=== PATIENT | male | born 1995 | race African-American/Black ===

== ENCOUNTER 2024-04-27 11:50 | Emergency (ER) | payer SELFPAY ==
[~2024-04-27] VITALS: Ht 172.7 cm; Wt 109.0 kg
[~2024-04-27 11:50] MED LIST: DOXY100T28 PO; FLUT9.9S BOTHNSTRLS; MECL-299 MT; NAPR-681 PO; TOPUD PO
[2024-04-27 12:09] VITALS: BP 138/86; PULSE 90; RESP 16; TEMP 37.1; O2SAT 98
== END 2024-04-27 14:47 ==
LOC: ER 11:50
DX: S71.132A Puncture wound without foreign body, left thigh, initial encounter (principal); I10 Essential (primary) hypertension; Z88.0 Allergy status to penicillin; Z79.899 Other long term (current) drug therapy; X58.XXXA Exposure to other specified factors, initial encounter; Y93.89 Activity, other specified; Y92.89 Other specified places as the place of occurrence of the external cause; Y99.8 Other external cause status
CPT/HCPCS: 99283

== ENCOUNTER 2024-04-28 03:49 | Emergency (ER) | payer SELFPAY ==
[~2024-04-28] VITALS: Ht 170.2 cm; Wt 96.0 kg
[2024-04-28 03:51] VITALS: O2SAT 99
[2024-04-28] MEDS: AMLODIPINE 5MG TABLET PO ONE (04:54)
[2024-04-28] MEDS: ACETAMINOPHEN 500MG TABLET PO ONE (04:54)
[2024-04-28 05:03] LABS: BASOPHILS % 0.9 % (0.0-2.0); EOSINOPHILS % 2.1 % (0.0-5.0); HEMATOCRIT. 40.2 % (42.0-52.0); HEMOGLOBIN. 13.3 g/dL (14.0-18.0); LYMPHOCYTES % 19.7 % (20.0-50.0); MEAN CORPUSCULAR HGB CONC 33.2 g/dL (31.0-37.0); MEAN CORPUSCULAR VOLUME 87.6 fL (80.0-94.0); MEAN PLATELET VOLUME 7.5 fl (7.4-10.4); MONOCYTES % 9.8 % (2.0-8.0); NEUTROPHILS % 67.5 % (40.0-76.0); PLATELET 349 x1000/uL (130-400); RED BLOOD CELL COUNT 4.59 mill/uL (4.7-6.1); RED CELL DISTRIBUTION WIDTH 13.5 % (11.6-14.6); WHITE BLOOD COUNT 8.6 x1000/uL (4.5-11.0)
[2024-04-28 05:06] LABS: CHLORIDE 108 mEq/L (98-107); POTASSIUM 3.8 mEq/L (3.5-5.1); SODIUM 141 mEq/L (136-145)
[2024-04-28 05:07] LABS: CARBON DIOXIDE 28 mEq/L (21-32)
[2024-04-28 05:08] LABS: CALCIUM 9.3 mg/dL (8.7-10.4)
[2024-04-28 05:13] LABS: GLUCOSE 145 mg/dL (70-105); UREA NITROGEN BLOOD 12 mg/dL (9-23)
[2024-04-28 05:37] VITALS: BP 162/100; PULSE 87; RESP 20; TEMP 36.8; O2SAT 98
== END 2024-04-28 05:40 | disposition home or self-care (01) ==
LOC: ER 03:49
DX: I10 Essential (primary) hypertension (principal); Z88.0 Allergy status to penicillin; Z79.899 Other long term (current) drug therapy
CPT/HCPCS: 36415; 80048; 85025; 99284